=== PATIENT | male | born 1990 | race American Indian/Alaskan Native ===

== ENCOUNTER 2017-10-28 05:51 | Emergency (ER) | payer SELFPAY ==
[2017-10-28 07:43] LABS: Bilirubin,Urine NEG (Negative); Blood,Urine NEG (Negative); Color,Urine Yellow (Yellow); Mucus,Urine 3+ /HPF
--- NOTE | 2017-10-28 08:01 | Emergency Department Report ---
ED Male HPI - General Chief complaint: Urogenital-Male Stated complaint: BODY RASH Time Seen by Provider: 10/28/17 07:41 Source: patient Mode of arrival: Ambulatory Limitations: No Limitations - History of Present Illness Initial comments: This is a 27-year-old male here presents to the ED will complain irritation and rash ringing sensation in his groin and penis ear for about a week. He said he is breaking out all over to his penile area with a little bit of burning on urination denies any discharge. Denies any history of STD. He reports itching all over to his penile area. No aggravating or exacerbating factors MD Complaint: dysuria, other (itching to genital area) Onset/Timin -: week(s) Location: penis Radiation: none Severity scale (0 -10): 0 Improves with: none Worsens with: none new sexual partner rash, dysuria. denies: discharge, swelling, mass, urinary retention, blood in urine, fever, nausea/vomiting, incontinence - Related Data Sexually active: Yes Previous Rx's Medication Instructions Recorded Last Taken Type Ciprofloxacin HCl [Ciprofloxacin 500 mg PO Q12H 10 Days #20 tab 10/28/17 Unknown Rx TAB] Allergies Allergy/AdvReac Type Severity Reaction Status Date / Time No Known Allergies Allergy Verified 10/28/17 06:16 ED Review of Systems ROS: Stated complaint: BODY RASH Other details as noted in HPI Constitutional: denies: chills, fever ENT: denies: ear pain, throat pain Respiratory: denies: cough, shortness of breath, wheezing Cardiovascular: denies: chest pain, palpitations Gastrointestinal: denies: abdominal pain, nausea, vomiting, diarrhea Genitourinary: dysuria. denies: urgency, hematuria, discharge, testicular pain , testicular mass Musculoskeletal: denies: back pain, joint swelling, arthralgia Skin: rash, pruritus. denies: lesions Neurological: paresthesias. denies: headache, weakness Hematological/Lymphatic: easy bleeding ED Past Medical Hx - Past Medical History Previous Medical History?: No - Surgical History Past Surgical History?: Yes Additional Surgical History: left hip sx - Family History Family history: hypertension - Social History Smoking Status: Current Every Day Smoker Substance Use Type: Alcohol, Marijuana - Medications Home Medications: Home Medications Medication Instructions Recorded Confirmed Last Taken Type Ciprofloxacin HCl [Ciprofloxacin 500 mg PO Q12H 10 Days #20 tab 10/28/17 Unknown Rx TAB] ED Physical Exam - General Limitations: No Limitations General appearance: alert, in no apparent distress - Head Head exam: Present: atraumatic, normocephalic, normal inspection - Eye Eye exam: Present: normal appearance, PERRL, EOMI Pupils: Present: normal accommodation - ENT ENT exam: Present: normal exam, normal orophraynx, mucous membranes moist - Neck Neck exam: Present: normal inspection, full ROM. Absent: tenderness, lymphadenopathy - Respiratory Respiratory exam: Present: normal lung sounds bilaterally. Absent: respiratory distress, chest wall tenderness, accessory muscle use - Cardiovascular Cardiovascular Exam: Present: regular rate, normal rhythm. Absent: systolic murmur, diastolic murmur, rubs, gallop - GI/Abdominal GI/Abdominal exam: Present: soft, normal bowel sounds. Absent: distended, tenderness, guarding, rebound, rigid, organomegaly, mass - exam: Absent: testicular tenderness, urethral discharge, scrotal swelling, vertical testicular lie, circumcision, other External exam: Present: lesions (penile area). Absent: erythema, swelling, lacerations, ecchymosis, bleeding - Extremities Exam Extremities exam: Present: normal inspection, full ROM, normal capillary refill , other (No cce. + 2 pulses in all extremities, no neurovascular compromise). Absent: tenderness, pedal edema, joint swelling, calf tenderness - Neurological Exam Neurological exam: Present: alert, oriented X3, normal gait - Psychiatric Psychiatric exam: Present: normal affect, normal mood - Skin Skin exam: Present: warm, dry, intact, normal color, rash ED Course Vital Signs 10/28/17 08:02 Temperature 98.8 F Pulse Rate 72 Respiratory 16 Rate Blood Pressure 110/62 [Left] O2 Sat by Pulse 100 Oximetry - Reevaluation(s) Reevaluation #1: 10/28/17 08:03 I discussed the patient that rash appears to be syphilis and be treated with penicillin. ED Medical Decision Making - Lab Data Lab Results 10/28/17 Range/Units 07:01 Urine Color Yellow (Yellow) Urine Turbidity Hazy (Clear) Urine pH 5.0 (5.0-7.0) Ur Specific [place] 1.034 H (1.003-1.030) Urine Protein 30 mg/dl (Negative) mg/dL Urine Glucose (UA) Neg (Negative) mg/dL Urine Ketones Neg (Negative) mg/dL Urine Blood Neg (Negative) Urine Nitrite Neg (Negative) Urine Bilirubin Neg (Negative) Urine Urobilinogen 4.0 (<2.0) mg/dL Ur Leukocyte Esterase Mod (Negative) Urine WBC (Auto) 47.0 H (0.0-6.0) /HPF Urine RBC (Auto) 10.0 (0.0-6.0) /HPF U Epithel Cells (Auto) < 1.0 (0-13.0) /HPF Urine Mucus 3+ /HPF Urine culture sent - Medical Decision Making This is a 27-year-old male here report that he has rash in edition all over his penis. He reports the rash is not painful. He said it came up 1 week ago. Patient said he does not have any medical problem but he goes to [facility] [place]. He is also complaining of urinary burning Was examined by myself and found to have a nonpainful lesion on his penis and genital area. I discussed treatment plan with him and I also told him that he has urinary tract infection that I will treat and he will need to take ciprofloxacin for 10 days and he agrees. Vital signs are stable he is afebrile and nontoxic in appearance. He has no penile discharge and scrotal is normal in appearance. No testicular masses felt. Patient agreed and voiced understanding and discharge instruction. I left room to prescribe medications the patient and to given penicillin and patient was found to be not in the room it appears that he had eloped. Patient left after verbal discharge instruction and left without his paperwork and medication. - Differential Diagnosis herpes genitalia, syphilis, contact dermatitis Critical care attestation.: If time is entered above; I have spent that time in minutes in the direct care of this critically ill patient, excluding procedure time. ED Disposition Clinical Impression: Acute cystitis without hematuria, Syphilis in male Disposition: Z-07 ELOPED Is pt being admited?: No Does the pt Need Aspirin: No Condition: Stable Instructions: Syphilis (ED), Urinary Tract Infection in Women (ED), Dysuria (ED ) Additional Instructions: Please practice safe sex Practice good hand hygiene Followed discharge instruction and syphilis and urinary tract infection Prescriptions: Ciprofloxacin HCl [Ciprofloxacin TAB] 500 mg PO Q12H 10 Days #20 tab Referrals: [facility] [Other] - 3-5 Days Forms: Work/School Release Form(ED)
[2017-10-28 08:03] VITALS: BP 110/62
== END 2017-10-28 08:27 | disposition left against medical advice (07) ==
LOC: ED 05:51
DX: N30.00 Acute cystitis without hematuria (principal); A53.9 Syphilis, unspecified; F17.200 Nicotine dependence, unspecified, uncomplicated; F12.10 Cannabis abuse, uncomplicated
CPT/HCPCS: 81001; 99282

== ENCOUNTER 2017-11-01 10:01 | Emergency (ER) | payer SELFPAY ==
[2017-11-01 10:43] VITALS: BP 109/73
[2017-11-01] MEDS ORDERED: BICILLIN L-A IM ONE (12:06)
[2017-11-01] MEDS ORDERED: ZITHROMAX PO ONE (12:06)
--- NOTE | 2017-11-01 12:12 | Emergency Department Report ---
ED Male HPI - General Chief complaint: Urogenital-Male Stated complaint: DISCHARGE,BURNING Time Seen by Provider: 11/01/17 12:00 Source: patient Mode of arrival: Ambulatory Limitations: No Limitations - History of Present Illness Initial comments: Patient is a 27-year-old black male who is complaining of genital rash mostly on the scrotum and his penis for the past week that is itchy and now also has a penile discharge and dysuria. Patient was seen here 3 days ago and was diagnosed with a urinary tract infection but he left before getting his prescription. There was some misunderstanding. Patient denies any fevers chills nausea vomiting time. Patient is worried that he may have syphilis because of the rash on his scrotum and penis that he states is 9 painful. - Related Data Previous Rx's Medication Instructions Recorded Last Taken Type Ciprofloxacin HCl [Ciprofloxacin 500 mg PO Q12H 10 Days #20 tab 10/28/17 Unknown Rx TAB] Ciprofloxacin HCl [Cipro] 500 mg PO BID #14 tablet 11/01/17 Unknown Rx Fluconazole [Diflucan TAB] 200 mg PO QDAY #1 tablet 11/01/17 Unknown Rx Allergies Allergy/AdvReac Type Severity Reaction Status Date / Time No Known Allergies Allergy Verified 11/01/17 10:42 ED Review of Systems ROS: Stated complaint: DISCHARGE,BURNING Other details as noted in HPI Comment: All other systems reviewed and negative ED Past Medical Hx - Past Medical History Previous Medical History?: Yes Hx HIV: Yes - Surgical History Past Surgical History?: Yes Additional Surgical History: left hip sx - Social History Smoking Status: Current Every Day Smoker Substance Use Type: Alcohol, Marijuana - Medications Home Medications: Home Medications Medication Instructions Recorded Confirmed Last Taken Type Ciprofloxacin HCl [Ciprofloxacin 500 mg PO Q12H 10 Days #20 tab 10/28/17 Unknown Rx TAB] Ciprofloxacin HCl [Cipro] 500 mg PO BID #14 tablet 11/01/17 Unknown Rx Fluconazole [Diflucan TAB] 200 mg PO QDAY #1 tablet 11/01/17 Unknown Rx ED Physical Exam - General Limitations: No Limitations General appearance: alert, in no apparent distress - Head Head exam: Present: atraumatic, normocephalic - Eye Eye exam: Present: normal appearance - ENT ENT exam: Present: mucous membranes moist - Neck Neck exam: Present: normal inspection - Respiratory Respiratory exam: Present: normal lung sounds bilaterally. Absent: respiratory distress - Cardiovascular Cardiovascular Exam: Present: regular rate, normal rhythm. Absent: systolic murmur, diastolic murmur, rubs, gallop - GI/Abdominal GI/Abdominal exam: Present: soft, normal bowel sounds - Rectal Rectal exam: Present: deferred - exam: Present: other (patient has a rash on the scrotum that appears it is round erythematous lesions in a geographical pattern there is no bleeding at this time) - Extremities Exam Extremities exam: Present: normal inspection - Back Exam Back exam: Present: normal inspection - Neurological Exam Neurological exam: Present: alert, oriented X3 - Psychiatric Psychiatric exam: Present: normal affect, normal mood - Skin Skin exam: Present: warm, dry, intact, normal color. Absent: rash ED Course Vital Signs 11/01/17 10:40 Temperature 98.5 F Pulse Rate 64 Respiratory 20 Rate Blood Pressure 109/73 O2 Sat by Pulse 99 Oximetry ED Medical Decision Making - Medical Decision Making Asians rash is concerning for syphilis. Patient will be given Bicillin as well as an RPR will be sent. Patient can return to medical records for the RPR results. Looking at the urinalysis from patient's last visit there was significant amount of wbc's in the patient's urine. Patient recovered gonorrhea Chlamydia but also be started on Cipro at home for urinary tract infection. She'll be discharged at this time. Critical care attestation.: If time is entered above; I have spent that time in minutes in the direct care of this critically ill patient, excluding procedure time. ED Disposition Clinical Impression: Rash of genital area, Urethritis Disposition: DC-01 TO HOME OR SELFCARE Is pt being admited?: No Does the pt Need Aspirin: No Condition: Stable Instructions: Nonspecific Urethritis in Men (ED), Syphilis (ED) Additional Instructions: Information about syphilis has been included in your discharge packet. He has not been formally diagnosed with syphilis at this time. Please return to medical records for your syphilis test in 24-48 hours. You have been treated already empirically for syphilis which also is a treatment for the discharge is present today. Referrals: [facility] [Outside] - 3-5 Days Forms: STI Treatment and Prevention
--- NOTE | 2017-11-02 15:45 | ED Elopement Review ---
ED Pt Elopement review - Results review Lab results: Laboratory Tests 11/01/17 12:22 RPR Titer 1:128 RPR Reactive - Call Back decision Pt Call Back Decision: Pt to F/U with PMD (patient can follow up with outpatient primary care doctor or local health department for positive syphilis screen.)
== END 2017-11-01 12:55 | disposition home or self-care (01) ==
LOC: ED 10:01
DX: R21 Rash and other nonspecific skin eruption (principal); N34.2 Other urethritis; F17.200 Nicotine dependence, unspecified, uncomplicated; F12.10 Cannabis abuse, uncomplicated
CPT/HCPCS: 36415; 86592; 86593; 96372; 99283; J0561; 86780